=== PATIENT | female | born 1965 | race Caucasian/White ===

== ENCOUNTER 2016-09-21 11:18 | Emergency (ER) | payer OTHER ==
[2016-09-21 12:15] VITALS: BP 116/70
--- NOTE | 2016-09-21 12:41 | RAD ---
Left rib series to include a PA chest radiograph 09/21/2016 Clinical history: Left rib pain for 3 days. A PA digital radiograph of the chest was obtained. 2 AP and an oblique digital radiographs of the left ribs were obtained. The cardiac silhouette is borderline enlarged. The thoracic aorta is minimally tortuous. No acute pulmonary infiltrate is seen. No pleural effusion or pneumothorax is noted. The osseous structures are grossly intact. Specifically no left-sided rib fracture is seen. Impression: No left-sided rib fracture is seen.
--- NOTE | 2016-09-21 13:07 | PHYS DOC ---
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 Pt states Thursday (two days ago) she was moving hay beni when she first noticed a twinge "right behind my left breast." Described as sharp/stabby, worse with movements relieved with rest no sob/n/v/diaphoresis/arm or neck sx/BAUTISTA/dizzy. Pt says there was dust in the air when she was moving hay and she thinks she now has some type of mold toxicity causing her sx. No cough/wheeze/sob/issa/fever/chills. No prearrival treatment, pt very anxious convinced that a severe condition causing these symptoms. ED VSS Timing/Duration: getting worse (2 days) Severity: severe Modifying Factors: worse with movement, improves with rest Associated Symptoms: chest pain, other Allergies: Coded Allergies: No Known Drug Allergies (Unverified , 09/21/16) Past Medical History Medical History: no pertinent history Surgical History: noncontributory Social History Smoker: non-smoker Alcohol: none Drugs: none Review of Systems Constitutional: denies chills, denies diaphoresis, denies fever, denies malaise Respiratory: denies cough, denies orthopnea, denies shortness of breath, denies wheezing Cardiovascular: see HPIdenies edema, denies palpitations, denies syncope Gastrointestinal: denies abdominal pain, denies diarrhea, denies nausea, denies vomiting Genitourinary: denies frequency, denies hematuria Musculoskeletal: see HPIdenies back pain, denies joint swelling, denies neck pain Skin: denies change in color, denies lesions, denies lumps, denies rash Psychiatric/Neurological: denies headache, denies numbness, denies paresthesia Hematologic/Lymphatic: denies blood clots, denies easy bleeding, denies easy bruising Physical Exam General Appearance: WD/WN, mild distress (very anxious) Eyes: bilateral eye EOMI, bilateral eye PERRL, bilateral eye normal inspection Ear, Nose, Throat: hearing grossly normal, normal ENT inspection, normal pharynx Neck: non-tender, supple Respiratory: normal breath sounds, no respiratory distress, no accessory muscle use, other (pt cupped/covered left breast pulling it superiorly. Point tenderness noted at intercostal muscles no bony TTP. Pt begins sobbing due to severe pain when tender muscle palpated. 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 PHYSICIAN: LILLIE FALLON DO REASON: left anterior rib pain PROCEDURE: RIBS LEFT AND PA CHEST Left rib series to include a PA chest radiograph 09/21/2016 Clinical history: Left rib pain for 3 days. A PA digital radiograph of the chest was obtained. 2 AP and an oblique digital radiographs of the left ribs were obtained. The cardiac silhouette is borderline enlarged. The thoracic aorta is minimally tortuous. No acute pulmonary infiltrate is seen. No pleural effusion or pneumothorax is noted. The osseous structures are grossly intact. Specifically no left-sided rib fracture is seen. Impression: No left-sided rib fracture is seen. DICTATED AND SIGNED BY: WILLOW HALL MD DATE: 09/21/16 1237 CC: LILLIE FALLON DO ~ Symptoms/exam not consistent with intrathoracic process, VSS, I feel pt stable for discharge. Pt refuses rx for pain. I discussed treatment plan repeatedly and in great detail, pt repeatedly expresses agreement/understanding. Departure Time of Disposition: 13:15 Disposition: 01 HOME, SELF-CARE Diagnosis: chest wall pain Condition: GOOD Patient Instructions: Costochondritis, [id number], Muscle Strain, Easy-to- Read Additional Instructions: Activity as tolerated. OTC tylenol/ibuprofen as needed. Heating pad 20 minutes, 4-5 times daily followed by gentle stretching. Follow up with your doctor in one week if no improvement. Return to ED with new or changing symptoms. LILLIE FALLON DO Sep 21, 2016 13:07
== END 2016-09-21 13:21 | disposition home or self-care (01) ==
LOC: ER 11:18
DX: R07.89 Other chest pain (principal)
CPT/HCPCS: 71101; 99284

== ENCOUNTER 2019-02-18 18:54 | Emergency (ER) | payer OTHER ==
[~2019-02-18] VITALS: Ht 172.7 cm; Wt 81.0 kg
--- NOTE | 2019-02-18 18:57 | ED.ADGEN ---
Past History Past Medical History: No Pertinent History Past Surgical History: Hysterectomy Alcohol Use: None Drug Use: None Adult General Chief Complaint Chief Complaint ".. I was mowing and I ran over a nest.wasps or yellow jackets.. ... the got me every where....".I used to be allergic when I was a kid.. they even stung my gum.. here above the tooth.. and now my finger is swelling up.. I can't get the ring off..>" HPI HPI Patient is a 53 year old female who presents with above hx and complaints multiple stings. Patient most pressing problem is swelling of on her left hand and fourth finger. Ring is currently cutting off circulation to finger tip. Patient does not remember last tetanus. No recent travel. No history immunosuppression. Patient normally follows at [facility] [facility]. Review of Systems Review of Systems Constitutional: Denies fever or chills [] Eyes: Denies change in visual acuity, redness, or eye pain [] HENT: Denies nasal congestion or sore throat [] Respiratory: Denies cough or shortness of breath [] Cardiovascular: No additional information not addressed in HPI [] GI: Denies abdominal pain, nausea, vomiting, bloody stools or diarrhea [] : Denies dysuria or hematuria [] Musculoskeletal: Denies back pain or joint pain [] Integument: Denies rash or skin lesions [] Neurologic: Denies headache, focal weakness or sensory changes [] Endocrine: Denies polyuria or polydipsia [] All other systems were reviewed and found to be within normal limits, except as documented in this note. Family History Family History Noncontributory Current Medications Current Medications Current Medications Medications (Trade) Dose Ordered Sig/Keke Start Time Stop Time Status Last Admin Dose Admin Albuterol Sulfate (Ventolin Hfa Inhaler) 2 puff 1X ONCE 02/18/19 20:00 02/18/19 20:01 DC 02/18/19 20:44 2 PUFF Albuterol/ Ipratropium (Duoneb) 6 ml 1X ONCE 02/18/19 19:15 02/18/19 19:16 DC 02/18/19 19:18 6 ML Diphenhydramine HCl (Benadryl) 50 mg 1X ONCE 02/18/19 19:15 02/18/19 19:16 DC 02/18/19 19:12 50 MG Diphtheria/ Tetanus/Acell Pertussis (Boostrix) 0.5 ml ONCE ONCE 02/18/19 19:30 02/18/19 19:31 DC 02/18/19 19:40 0.5 ML Famotidine (Pepcid Vial) 20 mg 1X ONCE 02/18/19 19:15 02/18/19 19:16 DC 02/18/19 19:12 20 MG Lactated Ringer's 1,000 ml @ 1,000 mls/hr 1X ONCE 02/18/19 19:15 02/18/19 20:14 DC 02/18/19 19:12 1,000 MLS/HR Methylprednisolone Sodium Succinate (SOLU-Medrol 125MG VIAL) 125 mg 1X ONCE 02/18/19 19:15 02/18/19 19:16 DC 02/18/19 19:12 125 MG Oxycodone/ Acetaminophen (Percocet 5/325) 2 tab 1X ONCE 02/18/19 19:30 02/18/19 19:31 DC 02/18/19 19:38 2 TAB Allergies Allergies Allergies Coded Allergies Type Severity Reaction Last Updated Verified bee venom protein (honey bee) Allergy Unknown 02/18/19 Yes Physical Exam Physical Exam Constitutional: in acute distress, non-toxic appearance. [] HENT: Normocephalic, atraumatic, bilateral external ears normal, oropharynx moist, no oral exudates, nose normal. Insect stings Eyes: PERRLA, EOMI, conjunctiva normal, no discharge. [] Neck: Normal range of motion, no tenderness, supple, no stridor. [] Cardiovascular: Tachycardia Heart rate regular rhythm, no murmur [] Lungs & Thorax: Bilateral breath sounds equal with scattered wheezes auscultation [] Abdomen: Bowel sounds normal, soft, no tenderness, no masses, no pulsatile masses. [] Old surgery scar Skin: Warm, dry, diffuse erythema rash. Insect stings- multiple Back: No tenderness, no CVA tenderness. [] Extremities: No tenderness, no cyanosis, no clubbing, ROM intact, left hand edema. [] Neurologic: Alert and oriented X 3, normal motor function, normal sensory function, no focal deficits noted. [] Psychologic: Affect anxious.,judgement normal, mood normal. [] Current Patient Data Vital Signs Vital Signs Date Time Temp Pulse Resp B/P (MAP) Pulse Ox O2 Delivery O2 Flow Rate FiO2 02/18/19 20:54 76 18 150/56 (87) 99 Room Air 02/18/19 19:22 98.3 EKG EKG [] Radiology/Procedures Radiology/Procedures [] Course & Med Decision Making Course & Med Decision Making Pertinent Labs and Imaging studies reviewed. (See chart for details) Procedure note- wedding ring removed- by use of umbilicus tape and cutting dikes. Circulation return to finger shortly after removing ring. Patient take Benadryl 50 mg 4 times a day. Patient take prednisone 50 mg a day for 5 Days. Takes Zantac 150 mg twice a day. Use MDI 2 puffs 4 times a day. Use ice packs on area sustaining. Follow up with primary care consider desensitization. Keep Epi pen available. Follow up with primary. Return if any concerns. [] Final Impression Final Impression 1. Allergic reaction multiple insect stings - wasp / yellow jacket. 2. Removal wedding ring Dragalex Disclaimer Dragon Disclaimer This electronic medical record was generated, in whole or in part, using a voice recognition dictation system. TAMMIE KIMBALL MD Feb 18, 2019 18:57
[2019-02-18] MEDS ORDERED: diphenhydrAMINE 50 MG/ML VIAL IVP ONE (19:15)
[2019-02-18] MEDS ORDERED: IPRATRPIUM/ALBUTEROL 0.5/2.5MG 3 ML NEBU. NEB ONE (19:15)
[2019-02-18] MEDS ORDERED: IV RINGERS SOLUTION,LACTATED 1,000 ML IV ONE (19:15)
[2019-02-18] MEDS ORDERED: FAMOTIDINE 20 MG/2 ML VIAL IVP ONE (19:15)
[2019-02-18] MEDS ORDERED: methylPREDNISolone SOD SUCC PF 125 MG/2 ML VIAL. IV ONE (19:15)
[2019-02-18] MEDS ORDERED: DIPHTH,PERTUSS(ACELL),TET TOX 0.5 ML DISP.SYRIN. VAX IM ONE (19:30)
[2019-02-18] MEDS ORDERED: oxyCODONE/APAP 5/325 1 TAB TABLET PO ONE (19:30)
[2019-02-18] MEDS ORDERED: RANI-376 PO (19:46)
[2019-02-18] MEDS ORDERED: PRED50TA PO (19:46)
[2019-02-18] MEDS ORDERED: EPIN0.3A4 IJ (19:46)
[2019-02-18] MEDS ORDERED: ALBUTEROL SULFATE 8GM INHALER. INH ONE (20:00)
[2019-02-18 20:54] VITALS: BP 150/56
== END 2019-02-18 20:50 | disposition home or self-care (01) ==
LOC: ER 18:54
DX: T63.481A Toxic effect of venom of other arthropod, accidental (unintentional), initial encounter (principal); S60.455A Superficial foreign body of left ring finger, initial encounter; Z91.030 Bee allergy status; W49.04XA Ring or other jewelry causing external constriction, initial encounter; Y93.89 Activity, other specified; Y92.89 Other specified places as the place of occurrence of the external cause; Y99.8 Other external cause status
CPT/HCPCS: 90471; 90715; 94640; 96374; 96375; 99284; J1200; J2930; J3490; J7120; J7613; J7620; 96361